=== PATIENT | male | born 1965 | race Caucasian/White ===

== ENCOUNTER 2019-02-23 18:41 | Emergency (ER) | payer BC ==
[2019-02-23] MEDS ORDERED: EPINEPHrine 1 MG/ML SDV SUBCUT ONE (18:50)
[2019-02-23] MEDS ORDERED: diphenhydrAMINE 50 MG/ML SDV IVPUSH ONE (18:50)
[2019-02-23] MEDS ORDERED: methylPREDNISolone Sodium Succinate 125 MG/2 ML SDV IVPUSH ONE (18:50)
[2019-02-23] MEDS ORDERED: Sodium Chloride 0.9% 1,000 ML IV SCH (19:00)
--- NOTE | 2019-02-23 19:31 | EDM.PDOC ---
ED HPI GENERAL MEDICAL PROBLEM - General Chief Complaint: Bite:Animal, Insect Stated Complaint: BEE STING Time Seen by Provider: 02/23/19 18:50 Source of Information: Reports: Patient History Limitations: Reports: No Limitations - History of Present Illness INITIAL COMMENTS - FREE TEXT/NARRATIVE: pt arrived with ahistory of being stung with 2 bees. He was covered wioth a redish rash and hives. He did not have sob. He was slightly dizzy but he did not pass out. He has only had one previous major reaction in the past. Onset: Today, Sudden Duration: Hour(s): Location: Reports: Generalized ( Pt has generalized redness. ) Associated Symptoms: Reports: Diaphoresis denies pain Pain Score (Numeric/FACES): 0 - Related Data Allergies Allergy/AdvReac Type Severity Reaction Status Date / Time bee venom protein (honey bee) Allergy Hives Verified 02/23/19 19:04 Past Medical History HEENT History: Reports: Impaired Vision Cardiovascular History: Reports: Hypertension Musculoskeletal History: Reports: Fracture, Other (See Below) Other Musculoskeletal History: fx right clavicle - Infectious Disease History Infectious Disease History: Reports: Chicken Pox, Measles Social & Family History - Tobacco Use Smoking Status *Q: Never Smoker - Caffeine Use Caffeine Use: Reports: Coffee, Soda - Recreational Drug Use Recreational Drug Use: No ED ROS GENERAL - Review of Systems Review Of Systems: See Below Constitutional: Reports: No Symptoms HEENT: Reports: No Symptoms Respiratory: Reports: No Symptoms Cardiovascular: Reports: No Symptoms Endocrine: Reports: No Symptoms GI/Abdominal: Reports: No Symptoms : Reports: No Symptoms Musculoskeletal: Reports: No Symptoms Skin: Reports: Rash, Urticaria ED EXAM, ANIMAL BITE - Physical Exam Exam: See Below Text/Narrative:: pt arrived with a total body rash after being stung by 2 bees. He had itching,. He had no sob. Exam Limited By: No Limitations General Appearance: Alert, Anxious, Moderate Distress Ears: Normal TMs Nose: Normal Inspection Throat/Mouth: Normal Inspection Head: Atraumatic Neck: Normal Inspection Respiratory/Chest: No Respiratory Distress Cardiovascular: Regular Rate, Rhythm GI/Abdominal: Soft, Non-Tender (Male) Exam: Deferred Rectal (Males) Exam: Deferred Back Exam: Normal Inspection Extremities: Normal Inspection Course - Vital Signs Last Recorded V/S: Last Vital Signs Temp 35.9 C 02/23/19 19:08 Pulse 99 02/23/19 19:08 Resp 16 02/23/19 19:08 BP 145/86 H 02/23/19 19:08 Pulse Ox 92 L 02/23/19 19:08 - Orders/Labs/Meds Orders: Active Orders 24 hr Category Date Time Status Sodium Chloride 0.9% [Normal Saline] 1,000 ml Med 02/23/19 19:00 Active IV ASDIRECTED Medication Orders Sodium Chloride (Normal Saline) 1,000 mls @ 999 mls/hr IV ASDIRECTED SERGIO Last Admin: 02/23/19 19:23 Dose: 999 mls/hr Meds: Medications Generic Name Dose Route Start Last Admin Trade Name Freq PRN Reason Stop Dose Admin Sodium Chloride 1,000 mls @ 999 mls/hr 02/23/19 19:00 02/23/19 19:23 Normal Saline IV 999 mls/hr ASDIRECTED SERGIO Administration Discontinued Medications Generic Name Dose Route Start Last Admin Trade Name Freq PRN Reason Stop Dose Admin Diphenhydramine HCl 25 mg 02/23/19 18:50 02/23/19 19:27 Benadryl IVPUSH 02/23/19 18:51 25 mg ONETIME ONE Administration Epinephrine HCl 0.3 mg 02/23/19 18:50 02/23/19 19:27 Adrenalin SUBCUT 02/23/19 18:51 0.3 mg ONETIME ONE Administration Methylprednisolone Sodium Succinate 125 mg 02/23/19 18:50 02/23/19 19:27 Solu-Medrol IVPUSH 02/23/19 18:51 125 mg ONETIME ONE Administration - Re-Assessments/Exams Free Text/Narrative Re-Assessment/Exam: 02/23/19 19:31 pt was given epi .3 , solumedrol 125 iv and benadryl 25 mg iv. Within minutes he looked alot better. He was given a liter of fluid. Departure - Departure Time of Disposition: 19:43 Disposition: Home, Self-Care 01 Condition: Fair Clinical Impression: Allergic reaction to bee sting - Discharge Information Referrals: PCP,None [Primary Care Provider] - Forms: ED Department Discharge Care Plan Goals: epipen, benadryl 50 mg when he gets hoe and another 25 mg at hs. cool pack the bee sting. - My Orders Last 24 Hours: My Active Orders 02/23/19 19:00 Sodium Chloride 0.9% [Normal Saline] 1,000 ml IV ASDIRECTED - Assessment/Plan Last 24 Hours: My Active Orders 02/23/19 19:00 Sodium Chloride 0.9% [Normal Saline] 1,000 ml IV ASDIRECTED
== END 2019-02-23 20:23 | disposition home or self-care (01) ==
LOC: JP.ED 18:41
DX: T63.441A Toxic effect of venom of bees, accidental (unintentional), initial encounter (principal); I10 Essential (primary) hypertension; Z91.030 Bee allergy status
CPT/HCPCS: 96361; 96372; 96374; 96375; 99282; J0171; J1200; J2930; J7030